=== PATIENT | male | born 1970 | race Caucasian/White ===

== ENCOUNTER 2018-05-21 19:30 | Emergency (ER) | payer MEDICAID ==
[2018-05-21 19:31] VITALS: BMI 25.8
[2018-05-21] MEDS ORDERED: Tmp-Smz 800 mg-160 mg DS Tab PO STA (21:48)
[2018-05-21 21:54] VITALS: TEMP 97.6; O2SAT 100
--- NOTE | 2018-05-21 22:21 | ED PDOC ---
Arrival/HPI <aRmirez Taylor - Last Filed: 05/21/18 23:28> - General Historian: Patient - History of Present Illness Narrative History of Present Illness (Text): 05/21/18 22:21 47yr old male presents today with left great toe pain. pt denies any trauma or injury. pt states pain is sharp and radiates into the foot. pt denies fever/chills. pt states pain is located over the distal aspect of the foot at the nail. pt took aleve at home for pain with minimal improvement. pt denies numbness, weakness, tingling in the extremity. Time/Duration: Other (today) Symptom Onset: Sudden Symptom Course: Unchanged <Divya Quintana - Last Filed: 05/22/18 01:50> - General Chief Complaint: Lower Extremity Problem/Injury Time Seen by Provider: 05/21/18 19:40 Past Medical History - Provider Review Nursing Documentation Reviewed: Yes - Travel History Have you recently traveled outside [place] w/in the past 3 mons?: No - Infectious Disease Hx of Infectious Diseases: None - Tetanus Immunization Tetanus Immunization: Up to Date - Cardiac Hx Cardiac Disorders: No Hx Hypertension: No - Pulmonary Hx Asthma: Yes Hx Tuberculosis: No - Neurological HX Cerebrovascular Accident: No Hx Seizures: No - HEENT Hx HEENT Disorder: No - Renal Hx Renal Disorder: No - Endocrine/Metabolic Hx Endocrine Disorders: No - Hematological/Oncological Hx Cancer: No - Integumentary Hx Dermatological Disorder: No - Musculoskeletal/Rheumatological Hx Falls: No - Gastrointestinal Hx Gastrointestinal Disorders: No - Genitourinary/Gynecological Hx Sexually Transmitted Diseases: No - Psychiatric Hx Anxiety: Yes Hx Substance Use: No - Surgical History Hx Cholecystectomy: Yes Other/Comment: right hand reconstruction - Anesthesia Hx Anesthesia: Yes Hx Anesthesia Reactions: No Hx Malignant Hyperthermia: No - Suicidal Assessment Feels Threatened In Home Enviroment: No <Divya Quintana - Last Filed: 05/22/18 01:50> Family/Social History - Physician Review Nursing Documentation Reviewed: Yes Family/Social History: Unknown Family HX Smoking Status: Never Smoked Hx Alcohol Use: No Hx Substance Use: No Hx Substance Use Treatment: No <Divya Quintana - Last Filed: 05/22/18 01:50> Allergies/Home Meds <Ramirez Taylor - Last Filed: 05/21/18 23:28> <[email or web address] - Last Filed: 05/22/18 01:50> Allergies/Adverse Reactions: Allergies levofloxacin [From Levaquin] Allergy (Verified 05/21/18 20:46) ANAPHYLAXIS Penicillins Allergy (Verified 05/21/18 20:46) ANAPHYLAXIS shellfish derived Allergy (Verified 05/21/18 20:46) ANAPHYLAXIS Home Medications: Home Meds Medication Instructions Recorded Confirmed Albuterol HFA [Ventolin HFA 90 1 puff IH Q4 PRN 05/09/14 11/22/14 mcg/actuation (8 g)] Review of Systems - Review of Systems Constitutional: absent: Fatigue, Fevers Respiratory: absent: SOB, Cough Cardiovascular: absent: Chest Pain Gastrointestinal: absent: Abdominal Pain, Nausea, Vomiting Musculoskeletal: Arthralgias. absent: Back Pain, Neck Pain Skin: absent: Rash, Pruritis Neurological: absent: Headache, Dizziness Psychiatric: absent: Anxiety, Depression <Divya Quintana - Last Filed: 05/22/18 01:50> Physical Exam Vital Signs Temp Pulse Resp BP Pulse Ox 05/21/18 21:54 97.6 F 88 16 146/89 100 05/21/18 20:34 96.5 F L 68 14 158/88 H 98 <Ramirez Taylor - Last Filed: 05/21/18 23:28> Vital Signs Reviewed: Yes Vital Signs Temp Pulse Resp BP Pulse Ox 05/21/18 21:54 97.6 F 88 16 146/89 100 05/21/18 20:34 96.5 F L 68 14 158/88 H 98 Temperature: Afebrile Blood Pressure: Hypertensive Pulse: Regular Respiratory Rate: Normal Appearance: Positive for: Well-Appearing, Non-Toxic, Comfortable Pain Distress: None Mental Status: Positive for: Alert and Oriented X 3 - Systems Exam Head: Present: Atraumatic Respiratory/Chest: Present: Clear to Auscultation Cardiovascular: Present: Regular Rate and Rhythm Lower Extremity: Present: Normal ROM, Tenderness (left great toe; + ttp over medial and proximal nail cuticle; no edema, no erythema; no ecchymosis, full rom of toe. sensation and distal pulses intact. cap refill <2. onychomyosis noted to the great toe bilaterally. ), Neurovascularly Intact, Capillary Refill < 2 s. No: Swelling, Erythema, Deformity Neurological: Present: GCS=15, Speech Normal, Motor Func Grossly Intact, Normal Sensory Function Skin: Present: Warm, Dry, Normal Color. No: Rashes Psychiatric: Present: Alert, Oriented x 3 <Divya Quintana - Last Filed: 05/22/18 01:50> Medical Decision Making - RAD Interpretation Radiology Orders: 05/21/18 21:07 FOOT LEFT GREAT TOE ROUTINE [RAD] Stat - Medication Orders Current Medication Orders: Discontinued Medications Ketorolac Tromethamine (Toradol) 30 mg IM STAT STA Stop: 05/21/18 21:49 Last Admin: 05/21/18 22:11 Dose: 30 mg MAR Pain Assessment Document 05/21/18 22:11 CNR (Rec: 05/21/18 22:11 CNR [id number]) Pain Reassessment Is this a pain reassessment? No IM Administration Charges Document 05/21/18 22:11 CNR (Rec: 05/21/18 22:11 CNR [id number]) Injection Site MAR Injection Site Right Deltoid Charges for Administration # of IM Administrations 1 Trimethoprim/Sulfamethoxazole (Bactrim Ds Tab) 1 tab PO STAT STA; Protocol Stop: 05/21/18 21:49 Last Admin: 05/21/18 22:11 Dose: 1 tab <Ramirez Taylor - Last Filed: 05/21/18 23:28> ED Course and Treatment: 05/21/18 22:25 Patient is nontoxic well-appearing in no distress. stable vital signs. xray left great toe; no fracture. pt with tenderness over medial and proximal cuticle with onychomyosis noted to great toe nail. possible ingrown toenail. no surrounding erythema or edema. will d/c home with bactrim. pt advised to f/u with elementary librarian. advised taking medications as prescribed and return immediately if symptoms worsen,persist or if new symptoms develop. Patient verbalizes understanding of discharge instructions and need for immediate followup. all aspects of this case were discussed the attending of record. Impression: Toe pain, ingrown toenail, onychomycosis Motrin every 6 hours as needed for pain Bactrim one tablet twice daily 7 days Warm soaks frequently Follow-up with the elementary librarian within the next 2 days Return immediately if symptoms worsen persist or if new concerning symptoms develop - RAD Interpretation Radiology Orders: 05/21/18 21:07 FOOT LEFT GREAT TOE ROUTINE [RAD] Stat - Medication Orders Current Medication Orders: Discontinued Medications Ketorolac Tromethamine (Toradol) 30 mg IM STAT STA Stop: 05/21/18 21:49 Last Admin: 05/21/18 22:11 Dose: 30 mg MAR Pain Assessment Document 05/21/18 22:11 CNR (Rec: 05/21/18 22:11 CNR [id number]) Pain Reassessment Is this a pain reassessment? No IM Administration Charges Document 05/21/18 22:11 CNR (Rec: 05/21/18 22:11 CNR [id number]) Injection Site MAR Injection Site Right Deltoid Charges for Administration # of IM Administrations 1 Trimethoprim/Sulfamethoxazole (Bactrim Ds Tab) 1 tab PO STAT STA; Protocol Stop: 05/21/18 21:49 Last Admin: 05/21/18 22:11 Dose: 1 tab <Divya Quintana - Last Filed: 05/22/18 01:50> - PA / [employer]PER[employer] / Resident Statement / has reviewed & agrees with the documentation as recorded. <Ramirez Taylor - Last Filed: 05/21/18 23:28> Disposition/Present on Arrival <Ramirez Taylor - Last Filed: 05/21/18 23:28> - Present on Arrival Any Indicators Present on Arrival: No History of DVT/PE: No History of Uncontrolled Diabetes: No Urinary Catheter: No History of Decub. Ulcer: No History Surgical Site Infection Following: None - Disposition Have Diagnosis and Disposition been Completed?: Yes Disposition Time: 21:50 Patient Plan: Discharge <Divya Quintana - Last Filed: 05/22/18 01:50> - Disposition Diagnosis: Toe pain, Onychomycosis, Ingrown toenail Disposition: HOME/ ROUTINE Condition: GOOD Discharge Instructions (ExitCare): Fungal Nail Infections, Ingrown Toenail (DC) Additional Instructions: Motrin every 6 hours as needed for pain Bactrim one tablet twice daily 7 days Warm soaks frequently Follow-up with the elementary librarian within the next 2 days Return immediately if symptoms worsen persist or if new concerning symptoms develop Prescriptions: Ibuprofen [Motrin] 600 mg PO Q6H PRN #20 tab PRN Reason: pain/fever reduction Sulfamethoxazole/Trimethoprim [Bactrim DS 800 mg-160 mg] 1 tab PO BID #14 tab Referrals: Morgan Hampton DPM [Staff Provider] - Follow up with primary Tracie Espinoza DPM [Staff Provider] - Follow up with primary Kayy Guzman MD [Medical Doctor] - Follow up with primary [facility] [Outside] - Follow up with primary [facility] [Outside] - Follow up with primary Forms: [employer]rio (Greenlandic), WORK NOTE
[2018-05-22 00:31] VITALS: BP 116/89; PULSE 72; RESP 17
--- NOTE | 2018-05-22 10:26 | RAD ---
Date of service: 05/21/2018 PROCEDURE: Left Foot Radiographs. HISTORY: toe pain COMPARISON: None. FINDINGS: BONES: Normal. No fracture. JOINTS: Normal. SOFT TISSUES: Normal. OTHER FINDINGS: None. IMPRESSION: Normal left foot radiographs.
== END 2018-05-21 22:55 | disposition home or self-care (01) ==
LOC: ED 19:30
DX: L60.0 Ingrowing nail (principal); B35.1 Tinea unguium; M79.675 Pain in left toe(s)
CPT/HCPCS: 73660; 96372; 99284; J1885